=== PATIENT | female | born 1985 | race Caucasian/White ===

== ENCOUNTER 2025-06-01 07:43 | Emergency (ER) | payer BC, SELFPAY ==
[2025-06-01 07:49] VITALS: BP 127/76; PULSE 95; TEMP 36.6; O2SAT 98; BMI 23.5
--- OUTSIDE RECORDS SUMMARY | 2025-06-01 07:54 | XMS_ITS | Clinical Summary ---
Author Organization [facility] Address [address] [place] [address] Care Team Providers Care Director Of Distribution Name Role Phone Trever Sharma MD Primary Care Provider [phone] Active Problems ProblemNoted DateDiagnosed DateAcute pain of right knee02/24/2024S/P right knee kopsrvnozyh02/29/2024 Social History Tobacco UseTypesPacks/DayYears UsedDateSmoking Tobacco: Never Assessed CommentsUnknownSex and Gender InformationValueDate RecordedSex Assigned at Not on fileLegal SmrQgtyeo22/15/2023 6:47 PM EDTGender IdentityNot on fileSexual OrientationNot on file Last Filed Vital Signs Vital SignReadingTime TakenCommentsBlood Pressure--Pulse--Temperature-- Respiratory Rate--Oxygen Saturation--Inhaled Oxygen Concentration--Ssqqxo07.5 kg (193 lb)07/31/2022 12:00 PM KYJBcsqux034.6 cm (5' 4 )07/31/2022 12:00 PM ESTBody Mass Index33.13007/31/2022 12:00 PM EST Plan of Treatment Not on file Insurance Care Teams Team MemberRelationshipSpecialtyStart DateEnd Trever Sharma MD [address] [place] [address] [facility]
--- OUTSIDE RECORDS SUMMARY | 2025-06-01 07:54 | XMS_ITS | Patient Health Record ---
Author Organization [facility] Address [address] [place] [address] Care Team Providers Care Spot Washer Name Role Phone Helene Rivera Primary Care Provider [phone] Allergies No Known Allergies Reason For Referral No Information Medications Medication SIG (Take, Route, Frequency, Duration) Notes Start Date End Date Status Escitalopram Oxalate 20 MG Tablet 1 tablet Orall y Once a day; Duration: 30 days 1Active Social History Tobacco Use: Social History Observation Description Date Details (start date - stop date) Never Smoker NA - NA Social History GeneralSocial InfoQuestionAnswerNotesSubstance abuse/mental health issues of patient/familyPatient -DeniesTobacco Screen:Are you a:never smokerAlcohol Screening:Did you have a drink containing alcohol in the past year?Yes? How often did you have a drink containing alcohol in the past year?Two to four times a month (2 points)? How many drinks did you have on a typical day when you were drinking in the past year?3 or 4 (1 point)Zdvilr8UegeospnegdiseUbvmnufj Problems Problem Type SNOMED Code ICD Code Onset Dates Problem Status W/U Status Risk Notes Problem Episodic mood disorder ([id number]) E pisodic mood disorder (F39) Activeconfirmed Plan Of Treatment No Information Insurance Providers Payer Name Payer Address Payer Phone Subscriber Number Group Number Insured Name Patient Relationship to Insured Coverage Start Date Coverage End Date ANTHEM Primary [address] [place] [phone] [id number] ANGELA PEREZ Self - patient is the insured 1 Medical (General) History Medical History History ICD Code episodic mood disorder Surgical History Surgery Date(Month/Year) tonsillectomy
--- OUTSIDE RECORDS SUMMARY | 2025-06-01 07:54 | XMS_ITS | Clinical Summary ---
Author Organization [facility] Address [address] [place], [place] [id number] Care Team Providers Care Distribution Center Assistant Name Role Phone Trever Sharma DO Primary Care Provider [phone] Allergies No known active allergies Medications MedicationSigDispense QuantityRefillsLast FilledStart DateEnd DateStatus rivaroxaban (XARELTO) 15 mg tablet Take 15 mg by mouth daily with dinner. Patient to start on Day 1 postop and continue for [address] Warner outside [facility] Active Problems ProblemNoted DateDiagnosed DateAcute deep vein thrombosis (DVT) of distal vein of lower qwkgsgomo10/05/2024 Assessment & Plan (01/31/2024 12:27 PM EDT): Assessment: Patient follows with Dr. Warner, local vascular. Provoked DVT post- op right knee surgery 2 years ago, completed 6 months of Xarelto. Upcoming OV 02/18/2024, pre-operatively. Surgeon's office faxed/requested optimization, see below. January 23, 2024 Sofiya Pastor RN LS 01/23/24 11:09 AM Note Patient called back to the office after speaking with Dr Warner office. Dr Warner requested info on the surgery faxed to his office at [phone]. Info faxed. MARIA LUISA Garcia Lisa, RN LS 01/23/24 9:03 AM Note Spoke with patient. DOS agreed on 02/20/2024. Discussed preop instructions and the need for [facility] appt. Patient agreed to purchase Hibiclens OTC. Directions for use reviewed. PT location [facility] in [place] on [address] Advised patient will fax consult and suggested she call [facility] tomorrow to schedule first postop PT appt. Patient will obtain crutches and was advised to bring on DOS. [facility] ph ; fax [phone]. Patient has history of DVT after knee meniscus surgery in December 2021. She was on Xarelto for 6 mos and was managed by [facility] in [place] - Dr Trevon Warner. She was last seen by him in 05/2023. Suggested she contact Dr Warner office for surgical clearance and postop anticoagulation recommendations.Provided office fax number to fax Zeusricki documentation. Will update Vega CHACKO and Dr Casillas. All questions addressed at this time. 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edu/. Last address used for [address]4CommentsNoSex and Gender Information ValueDate RecordedSex Assigned at BirthNot on fileLegal YquDzdsby01/29/2024 11:43 AM EDTGender IdentityNot on fileSexual OrientationNot on file Last Filed Vital Signs Vital SignReadingTime TakenCommentsBlood Swdpafuy499/5007 3:15 PM EDT Erjxc3438 3:15 PM JFNIdpvzlfjzjp69.7 ??C (98 ??F)02/20/2024 3:15 PM EDT Respiratory Qvsx7213 3:15 PM EDTOxygen Riplelabft979%02/20/2024 3:15 PM EDTInhaled Oxygen Concentration--Axxutp45.1 kg (170 lb)01/31/2024 12:12 PM EDT Wnlvik909.6 cm (5' 4 )01/31/2024 12:12 PM EDTBody Mass Index29.18001/31/2024 12:12 PM EDT Plan of Treatment Health MaintenanceDue DateLast DoneCommentsAnxiety Tihoxzbmd65/03/2002Depression Sxbmblwhu50/03/2002HIV Otqnshwwe58/03/2002Hepatitis C Txpggupvh90/03/2002 DTaP,Tdap,Td Vaccine (1 - Tdap)2002Hepatitis B Vaccine (1 of 3 - 19+ 3- dose series)2002Cervical Cancer Ikfztaoho43/03/2005HPV Vaccine (1 - 3-dose SCDM series)2010Mammogram Meinbzedb86/03/2024Covid-19 Vaccine (1 - 2024- season)2025Influenza Vaccine (#1)2025 Insurance Care Teams Team MemberRelationshipSpecialtyStart DateEnd Date Trever Sharma DO [address] [place] [address] [facility]02/06/24
--- NOTE | 2025-06-01 08:11 | ECG_ITS ---
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
[2025-06-01] MEDS: 0.9 % SODIUM CHLORIDE 1,000 ML 999 ML IV (08:39)
[2025-06-01] MEDS: SUCRALFATE 1 GM TABLET PO (08:40)
[2025-06-01 08:42] LABS: Hematocrit 37.1 % (36.0-48.0); Hemoglobin 12.3 g/dL (12.0-16.0); Immature Granulocytes Abs Auto 0.04 10^3/uL (0.00-0.03); Immature Granulocytes Pct Auto 0.3 % (0.0-0.5); Lymphocytes Absolute Auto 1.1 10^3/uL (1.2-3.8); Mean Corpuscular HGB Conc 33.2 g/dL (29.9-35.2); Mean Corpuscular Hemoglobin 31.5 pg (26.7-34.0); Mean Corpuscular Volume 94.9 fL (81.0-99.0); Platelet Count 353 10^3/uL (150-450); Red Blood Count 3.91 10^6/uL (4.20-5.40); White Blood Count 12.3 10^3/uL (4.0-11.0)
[2025-06-01 08:44] VITALS: PULSE 65
[2025-06-01 09:02] LABS: Lactate/Lactic Acid 0.6 mmol/L (0.4-2.0)
[2025-06-01 09:09] LABS: Alanine Aminotransferase 12 U/L (14-59); Albumin Globulin Ratio 1.1; Albumin Level 3.8 g/dL (3.4-5.0); Alkaline Phosphatase 57 U/L (46-116); Anion Gap 13.3; Aspartate Amino Transferase 24 U/L (15-37); Blood Urea Nitrogen 10.0 mg/dL (7.0-18.0); Calcium 8.8 mg/dL (8.5-10.1); Carbon Dioxide 26.7 mmol/L (21.0-32.0); Chloride 106 mmol/L (98-107); Estimated GFR (African America >60 (>=60 mL/min/1.73m^2); Estimated GFR (Non-African Ame >60 (>=60 mL/min/1.73m^2); Globulin 3.5 g/dL; Glucose 95 mg/dL (74-106); Lipase 68.0 U/L (16.0-77.0); Magnesium 2.0 mg/dL (1.8-2.4); Potassium 4.0 mmol/L (3.5-5.1); Sodium 142 mmol/L (136-145); Total Protein 7.3 g/dL (6.4-8.2)
--- NOTE | 2025-06-01 09:10 | XR_ITS ---
The [address] [address] Patient Name: ANGELA PEREZ MRN: [id number] date: 1985 Sex: F Assigned Patient Location: ER Current Patient Location: ER Accession/Order Number: [id number] Exam Date: 06/01/2025 09:00 Report Date: 06/01/2025 09:49 At the request of: KELSY ATKINS DO Procedure: XR acute abdomen series ACUTE ABDOMEN SERIES WITH PA CHEST: CLINICAL HISTORY: epigastric pain and chest pain with nausea COMPARISON: None The chest film shows no acute cardiopulmonary findings. Supine and upright views of the abdomen and pelvis demonstrate air within the stomach. Mild air and stool are visualized within the colon. There is no small bowel dilatation, free air or air-fluid levels. No soft tissue masses or suspect renal calculi are seen. There are multiple pelvic phleboliths. There is subtle levoscoliotic curvature. Minor degenerative change is seen at the lumbar spine and SI joints. There are Essure sterilization inserts.. XR/XR acute abdomen series IMPRESSION: NO ACUTE PLAIN FILM FINDINGS. Impression dictated by: Lyric Wang M.D. 06/01/2025 9:49 AM Dictation Location: [place] [address] Electronically authenticated by: [id number] Y Date: 06/01/2025 09:49
[2025-06-01 09:45] VITALS: BP 113/66; PULSE 72; O2SAT 98
--- NOTE | 2025-06-01 09:46 | ED_ITS ---
HPI HPI - General Adult General Chief complaint: Nausea/Vomiting/Diarrhea Stated complaint: CHEST PAIN NAUSEA VOMITING Time Seen by Provider: 06/01/25 07:58 Source: patient Mode of arrival: walk-in Limitations: no limitations History of Present Illness HPI narrative: The patient is an otherwise healthy 39-year-old female who presents the emergency department from work for chest pain. The patient stated her symptoms started around 6 AM. She stated that she had some epigastric discomfort felt some nausea and then vomited. It was nonbloody nonbilious. The patient had a second episode as well. The patient states since then she has had chest pain. She states sharp and stabbing-like in sensation. She states it is not like heartburn and it is not like a burning sensation at all. She has no known history of coronary artery disease, hypertension, high cholesterol, diabetes, no coronary artery disease less than 50. Patient vapes but does not smoke tobacco. Patient has never had a stress test before. Patient has not had any diarrhea or constipation. No sick contacts or recent travel. No cough, cold, flulike symptoms. Related Data Previous Rx's ?Medication ?Instructions ?Recorded ondansetron 4 mg disintegrating 4 mg PO Q6H PRN nausea and 06/01/25 tablet vomiting 4 days #14 tabs Allergies Allergy/AdvReac Type Severity Reaction Status Date / Time No Known Drug Allergies Allergy Verified 06/01/25 07:52 Opioid HPI Opioid Management Most Recent Opioid Data: Last SEP Pain Assessment Today, 09:50 Review of Systems ROS Narrative 10 Systems were reviewed, and unless not ed in the HPI, all other systems are reviewed, unremarkable, or noncontributory. PFSH PFS Social History Little interest or pleasure in doing things: not at all Feeling down, depressed, or hopeless: not at all Exam Narrative Exam Narrative: Prior to examining the patient, I have washed with hospital approved and provided Antiseptic Hand Cylinder Machine Operator Pulp Drier and have also applied gloves.? Prior to touching the patient, I asked for consent to examine the patient.? General: Alert and oriented, well nourished, mild distress. Eye: PERRL, EOMI, normal conjunctiva. HENT: Normocephalic, normal hearing, moist oral mucosa, no scleral icterus Neck: Supple, non-tender, no carotid bruits, no JVD, no lymphadenopathy. Lungs: Clear to auscultation and percussion, non-labored respiration. No rhonchi, rales, wheezing Heart: Normal rate, regular rhythm, no murmur, gallop or edema. Abdomen: Soft, non-tender, non-distended, normal bowel sounds, no masses. Musculoskeletal: Normal range of motion and strength, no tenderness or swelling. Skin: Skin is warm, dry and pink, no rashes or lesions. Neurologic: Awake, alert, and oriented X3, CN II-XII intact. Psychiatric: Cooperative, appropriate mood and affect.? Following the conclusion of the examination, I have washed my hands thoroughly after removing examination gloves. Constitutional Vital Signs, click to edit/add: Last Vital Signs Temp 98 F 06/01/25 07:49 Pulse 72 06/01/25 09:45 Resp 18 06/01/25 09:45 BP 113/66 06/01/25 09:45 Pulse Ox 98 06/01/25 09:45 O2 Del Method Room Air 06/01/25 07:49 Course Course Hospital Course: Patient is a 39-year-old female with no risk factors for coronary artery disease presenting for chest pain. Reevaluation(s) Reevaluation #1: Patient still having pain in her chest and she states that it is sharp-like in sensation. Patient is going to be given Toradol 15 mg IV push. Time: 09:46 Reevaluation #2: updated the patient and her about the testing results from radiology and blood work. Pending result of the second troponin. Time: 10:34 Reevaluation #3: Explained to the patient and her before discharge that she had a low cardiac risk score and that although I was not able to identify what was causing her chest pain I could for certain states that today it does not appear cardiac. Vital Signs Vital signs: Vital Signs Temperature 98 F 06/01/25 07:49 Pulse Rate 95 H 06/01/25 07:49 Respiratory Rate 18 06/01/25 07:49 Blood Pressure 127/76 06/01/25 07:49 Pulse Oximetry 98 06/01/25 07:49 Oxygen Delivery Method Room Air 06/01/25 07:49 Temperature 98 F 06/01/25 07:49 Pulse Rate 72 06/01/25 09:45 Respiratory Rate 18 06/01/25 09:45 Blood Pressure 113/66 06/01/25 09:45 Pulse Oximetry 98 06/01/25 09:45 Oxygen Delivery Method Room Air 06/01/25 07:49 Medical Decision Making MDM Narrative Medical decision making narrative: 39-year-old female presenting to the emergency department with her for chest pain. Patient has a calculated heart score of 1. Differential Diagnosis Differential Diagnosis: Reflux, esophageal perforation, coronary artery disease, chest wall pain Medical Records Medical records reviewed: Yes I reviewed the patient's medical records Lab Data Lab results reviewed: Yes I reviewed the patient's lab results Lab results narrative: Troponin x 2 negative Labs: Lab Results 06/01/25 06/01/25 Range/Units 08:27 10:11 WBC 12.3 H (4.0-11.0) 10^3/uL RBC 3.91 L (4.20-5.40) 10^6/uL Hgb 12.3 (12.0-16.0) g/dL Hct 37.1 (36.0-48.0) % MCV 94.9 (81.0-99.0) fL MCH 31.5 (26.7-34.0) pg MCHC 33.2 (29.9-35.2) g/dL RDW 12.8 (11.0-15.0) % Plt Count 353 (150-450) 10^3/uL MPV 9.3 L (9.5-13.5) fL Neut % (Auto) 85.1 H (43.0-75.0) % Lymph % (Auto) 8.7 L (20.5-60.0) % Pinal % (Auto) 4.5 (1.7-12.0) % Eos % (Auto) 0.7 L (0.9-7.0) % Baso % (Auto) 0.7 (0.2-2.0) % Neut # (Auto) 10.5 H (1.4-6.5) 10^3/uL Lymph # (Auto) 1.1 L (1.2-3.8) 10^3/uL Pinal # (Auto) 0.6 (0.3-0.8) 10^3/uL Eos # (Auto) 0.1 (0.0-0.7) 10^3/uL Baso # (Auto) 0.1 (0.0-0.1) 10^3/uL Abs Immat Gran (auto) 0.04 H (0.00-0.03) 10^3/uL Imm/Tot Granulo (auto) 0.3 (0.0-0.5) % Sodium 142 (136-145) mmol/L Potassium 4.0 (3.5-5.1) mmol/L Chloride 106 (98-107) mmol/L Carbon Dioxide 26.7 (21.0-32.0) mmol/L Anion Gap 13.3 BUN 10.0 (7.0-18.0) mg/dL Creatinine 0.64 (0.55-1.02) mg/dL Est GFR ( Amer) >60 (>=60 mL/min/1.73m^2) Est GFR (Non-Af Amer) >60 (>=60 mL/min/1.73m^2) BUN/Creatinine Ratio 15.6 Glucose 95 (74-106) mg/dL Lactate 0.6 (0.4-2.0) mmol/L Calcium 8.8 (8.5-10.1) mg/dL Magnesium 2.0 (1.8-2.4) mg/dL Total Bilirubin 0.4 (0.2-1.0) mg/dL AST 24 (15-37) U/L ALT 12 L (14-59) U/L Alkaline Phosphatase 57 (46-116) U/L Troponin I High Sens <4.0 L 4.1 (4.0-51.3) pg/mL Total Protein 7.3 (6.4-8.2) g/dL Albumin 3.8 (3.4-5.0) g/dL Globulin 3.5 g/dL Albumin/Globulin Ratio 1.1 Lipase 68.0 (16.0-77.0) U/L Imaging Data Chest x-ray: Radiologist's impression: ITS Impressions Chest/Abdomen X-ray 06/01/25 09:10 IMPRESSION: NO ACUTE PLAIN FILM FINDINGS. Impression dictated by: Lyric Wang M.D. 06/01/2025 9:49 AM Dictation Location: [place] [address] Electronically authenticated by: [id number] Y Date: 06/01/2025 09:49 ECG Data Attestation: I personally reviewed and interpreted this ECG as follows: Prior ECG tracings: not available for review Interpretation: Patient had a normal sinus rhythm without any evidence of ST segment elevation or depression suggestive of infarction or ischemia. No ectopy or arrhythmia appreciated. DE interval and QRS durations are within normal limits. Summary: Normal EKG. Discharge Plan Discharge Stand Alone Forms: Work/School Release Chief Complaint: Nausea/Vomiting/Diarrhea Clinical Impression: Chest pain Patient Disposition: Home, Self-Care Time of Disposition Decision: 11:22 Condition: Good Mode of Transportation: Private Vehicle Prescriptions / Home Meds: New ondansetron 4 mg tablet,disintegrating 4 mg PO Q6H PRN (Reason: nausea and vomiting) 4 Days Qty: 14 0RF Print Language: Uzbek Instructions: Chest Pain (ED) Additional Instructions: Thank you for trusting me with your care today. Your cardiac enzymes both were unremarkable. Referrals: CHELO TAN [Primary Care Provider, Family Practice] - 1 week Discharge Date/Time: 06/01/25 11:47
[2025-06-01] MEDS: KETOROLAC TROMETHAMINE 30 MG/ML VIAL 15 MG IVP (09:50)
== END 2025-06-01 11:47 | disposition home or self-care (01) ==
PROVIDERS: Emergency Provider Emergency Medicine; Family Provider Family Medicine; PCP Family Medicine
DX: R07.9 Chest pain, unspecified (principal); F17.290 Nicotine dependence, other tobacco product, uncomplicated
CPT/HCPCS: 36415; 74022; 80053; 83605; 83690; 83735; 84484; 85025; 93005; 96361; 96374; 96375; 99284; 99285; J1885; J2405